=== PATIENT | female | born 1990 | race Caucasian/White ===

== ENCOUNTER 2017-06-12 01:28 | Emergency (ER) | END 2017-06-12 07:29 | disposition home or self-care (01) ==

== ENCOUNTER 2017-06-13 08:30 | Emergency (ER) | END 2017-06-13 09:37 | disposition home or self-care (01) ==

== ENCOUNTER 2017-06-17 03:26 | Observation (INO) | END 2017-06-17 20:15 | disposition home or self-care (01) ==

== ENCOUNTER 2017-07-02 15:49 | Emergency (ER) | END 2017-07-02 17:00 | disposition home or self-care (01) ==

== ENCOUNTER 2017-07-09 21:58 | Emergency (ER) | END 2017-07-10 00:17 | disposition home or self-care (01) ==

== ENCOUNTER 2017-11-30 02:28 | Emergency (ER) | END 2017-11-30 05:10 | disposition home or self-care (01) ==